=== PATIENT | female | born 1995 | race Caucasian/White ===

== ENCOUNTER 2022-03-20 20:54 | Inpatient (IN) ==
[2022-03-20] MEDS ORDERED: OXYTOCIN 30 UNITS/500 ML BAG IV PRN (21:11)
[2022-03-20] MEDS ORDERED: LIDOCAINE 1% LOCAL 20 ML VIAL INFIL PRN (21:11)
[2022-03-20] MEDS ORDERED: miSOPROStoL 200 MCG TAB PV ONE (21:14)
[2022-03-20 21:55] LABS: Hematocrit (blood only) 39.2 % (34.1-44.9); Hemoglobin 13.5 g/dl (12.0-16.0); Mean Corpuscular Hemoglobin 29.3 pg (25.0-34.0); Mean Corpuscular Hgb Conc 34.4 g/dL (32.0-36.0); Mean Corpuscular Volume 85.2 fL (80.0-100.0); Mean Platelet Volume 9.5 fL (9.4-12.3); Platelet Count 345 K/uL (130-400); RDW Standard Deviation 43.7 fL (36.4-46.3); White Blood Count 10.79 K/ul (4.8-10.8)
[2022-03-20] MEDS ORDERED: LORazepam 0.5 MG TAB PO PRN (22:05)
--- NOTE | 2022-03-20 22:05 | History & Physical Report ---
Date of Service March 20, 2022 Assessment & Plan (1) demise before 20 weeks with retention of fetus: Plan: 26-year-old -0-1-3 at 15 weeks and 4 days of gestation with IUFD diagnosed 2 days ago in office, Vital signs stable afebrile, Patient desires repeat ultrasound to confirm before we start induction, Plan to have repeat ultrasound, blood work, Cytotec per vagina 200 mcg every 4 hours, History of prior 2 C-sections, understand the risks of uterine rupture/dehiscence were History of anxiety, not on any meds, offered her psychiatric consult but she wants to hold for now, All questions were answered. (2) Anxiety during : (3) Intracranial hypertension: (4) History of delivery, currently : Admission and Anticipated Discharge Date Admission Date: March 20, 2022 History of Present Illness Primary Care Provider: NO PCP Patient is a 26-year-old -0-1-3 at 15 weeks and 4 days of gestation who was diagnosed with intrauterine demise 2 days ago in the office during routine OB exam. Was measuring 14 weeks and 6 days with normal heart rate activity. She was scheduled for today for induction of labor. Patient has no complaints, no contractions, cramping, vaginal bleeding nor leakage of fluid. She has questions and worries about going into anxiety and depression episodes during the process as well as after delivering the fetus. She desires to have a repeat ultrasound to confirm demise once more here. has been complicated by, 1. IUFD, 2. History of intracranial hypertension, on medical therapy, 3. History of depression/anxiety, tried 2 different antidepressants which made her symptoms worse and quit. I recommended psychiatric consultation while here but she is not sure yet she will let us know if she will decide to see one. 4. Tobacco use during , 5-7 a day and has been trying to quit, 5. History of 2 prior C-sections, 1 We discussed about etiology of IUFD and work-up including blood work, autopsy, cytogenic testing. She wants to do all the work-up possible. She wants to hold the fetus, obtain footprints, send fetus for autopsy and cytogenetic testing. Allergies Allergy/AdvReac Type Severity Reaction Status Date / Time No Known Allergies Allergy Verified 03/14/22 16:43 Home Medications Medication Instructions Recorded Confirmed Type amoxicillin 500 mg capsule 500 mg PO TID 10 days #30 caps 03/14/22 Rx Patient History Social History Smoking Status: Current every day smoker Tobacco Type: Cigarettes Feels Safe at Home: Yes [employer] History No history of STDs, including chlamydia, gonorrhea, genital herpes Review of Systems as per Subjective / HPI Physical Exam Constitutional: WD/WN, vitals as above well developed, well nourished, well groomed and comfortable Results & Data ([facility]) Vital Signs (Past 12 Hours) Vital Signs Pulse BP 03/20/22 21:13 93 H 135/81
[2022-03-20 22:23] LABS: Alanine Aminotransferase 19 U/L (7-52); Albumin Globulin Ratio 1.3 (0.9-2); Albumin Level 3.7 gm/dl (3.4-5.0); Alkaline Phosphatase 55 U/L (34-104); Anion Gap 7 (3-11); Aspartate Aminotransferase 16 U/L (13-39); BUN Creatinine Ratio 10.9 (10-20); Bilirubin,Total 0.3 mg/dl (0.2-1.0); Blood Urea Nitrogen 5 mg/dl (6-23); Calcium 9.1 mg/dl (8.5-10.1); Carbon Dioxide 26 mmol/L (21-32); Chloride 104 mmol/L (98-107); Est GFR (African American) > 150.0 ml/min; Est GFR (Non-African American) 136.3 ml/min; Globulin 2.8 gm/dl (2.5-4.0); Glucose 86 mg/dl (70-99(Fasting)); Potassium 3.2 mmol/L (3.5-5.1); Sodium 137 mmol/L (136-145); Total Protein 6.5 gm/dl (6.0-8.3)
[2022-03-20 22:32] LABS: Amphetamines+Metham, Urine Neg (Neg); Barbiturates, Urine Neg (Neg); Benzodiazepine, Urine Neg (Neg); Cocaine, Urine Neg (Neg); MDMA (Ecstacy), Urine Neg (Neg); Methadone, Urine Neg (Neg); Opiate, Urine Neg (Neg); Phencyclidine, Urine Neg (Neg)
[2022-03-20] MEDS: valACYclovir HCL 500 MG TABLET PO SCH (22:37)
[2022-03-20] MEDS ORDERED: miSOPROStoL 200 MCG TAB ONE (23:44)
--- NOTE | 2022-03-21 00:25 | Obstetrical Progress Note ---
Date of Service March 21, 2022 Assessment & Plan Admission and Anticipated Discharge Date Admission Date: March 20, 2022 Subjective Patient is back from US, no FHR, no movement, confirmed demise She ate dinner and ready for Cytotec. VE; Cervix closed, thick and firm Cytotec is placed in posterior cervix Lab Results 03/20/22 03/20/22 03/20/22 Range/Units 21:40 21:41 21:41 WBC 10.79 (4.8-10.8) K/ul RBC 4.60 (3.93-5.22) M/uL Hgb 13.5 (12.0-16.0) g/dl Hct 39.2 (34.1-44.9) % MCV 85.2 (80.0-100.0) fL MCH 29.3 (25.0-34.0) pg MCHC 34.4 (32.0-36.0) g/dL RDW Std Deviation 43.7 (36.4-46.3) fL RDW Coeff of Vicente 14.0 (11.5-14.5) % Plt Count 345 (130-400) K/uL MPV 9.5 (9.4-12.3) fL Sodium (136-145) mmol/L Potassium (3.5-5.1) mmol/L Chloride (98-107) mmol/L Carbon Dioxide (21-32) mmol/L Anion Gap (3-11) BUN (6-23) mg/dl Creatinine (0.6-1.2) mg/dl Est Cr Clr Drug Dosing Est GFR ( Amer) ml/min Est GFR (Non-Af Amer) ml/min BUN/Creatinine Ratio (10-20) Glucose (70-99(Fasting)) mg/dl Calcium (8.5-10.1) mg/dl Total Bilirubin (0.2-1.0) mg/dl AST (13-39) U/L ALT (7-52) U/L Alkaline Phosphatase (34-104) U/L Total Protein (6.0-8.3) gm/dl Albumin (3.4-5.0) gm/dl Globulin (2.5-4.0) gm/dl Albumin/Globulin Ratio (0.9-2) TSH 0.497 (0.300-4.500) uIu/ml Urine Opiates Screen (Neg) Ur Methadone, Qual (Neg) Urine Barbiturates (Neg) Ur Phencyclidine (PCP) (Neg) U Amphetamin/Meth Scrn (Neg) MDMA (Ecstasy) Screen (Neg) U Benzodiazepines Scrn (Neg) Ur Cocaine Metabolite (Neg) U Marijuana (THC) Screen (Neg) SARS-CoV-2, RNA, NAAT (NEGATIVE) Blood Type O Positive Antibody Screen NEGATIVE 03/20/22 03/20/22 03/20/22 Range/Units 21:41 22:04 22:04 WBC (4.8-10.8) K/ul RBC (3.93-5.22) M/uL Hgb (12.0-16.0) g/dl Hct (34.1-44.9) % MCV (80.0-100.0) fL MCH (25.0-34.0) pg MCHC (32.0-36.0) g/dL RDW Std Deviation (36.4-46.3) fL RDW Coeff of Vicente (11.5-14.5) % Plt Count (130-400) K/uL MPV (9.4-12.3) fL Sodium 137 (136-145) mmol/L Potassium 3.2 L (3.5-5.1) mmol/L Chloride 104 (98-107) mmol/L Carbon Dioxide 26 (21-32) mmol/L Anion Gap 7 (3-11) BUN 5 L (6-23) mg/dl Creatinine 0.46 L (0.6-1.2) mg/dl Est Cr Clr Drug Dosing Not Reportable Est GFR ( Amer) > 150.0 ml/min Est GFR (Non-Af Amer) 136.3 ml/min BUN/Creatinine Ratio 10.9 (10-20) Glucose 86 (70-99(Fasting)) mg/dl Calcium 9.1 (8.5-10.1) mg/dl Total Bilirubin 0.3 (0.2-1.0) mg/dl AST 16 (13-39) U/L ALT 19 (7-52) U/L Alkaline Phosphatase 55 (34-104) U/L Total Protein 6.5 (6.0-8.3) gm/dl Albumin 3.7 (3.4-5.0) gm/dl Globulin 2.8 (2.5-4.0) gm/dl Albumin/Globulin Ratio 1.3 (0.9-2) TSH (0.300-4.500) uIu/ml Urine Opiates Screen Neg (Neg) Ur Methadone, Qual Neg (Neg) Urine Barbiturates Neg (Neg) Ur Phencyclidine (PCP) Neg (Neg) U Amphetamin/Meth Scrn Neg (Neg) MDMA (Ecstasy) Screen Neg (Neg) U Benzodiazepines Scrn Neg (Neg) Ur Cocaine Metabolite Neg (Neg) U Marijuana (THC) Screen Neg (Neg) SARS-CoV-2, RNA, NAAT NEGATIVE (NEGATIVE) Blood Type Antibody Screen Low K: 10 meq KCL ordered Atarax prn for anxiety and sleep Continue with Cytotec 4 hours Continue to monitor Results & Data ([facility]) Vital Signs (Past 12 Hours) Vital Signs Temp Pulse Resp BP 03/20/22 21:13 37.1 C 93 H 18 135/81
[2022-03-21] MEDS ORDERED: BUTORPHANOL TARTRATE 1 MG/ML VIAL IV PRN (00:27)
[2022-03-21] MEDS ORDERED: ACETAMINOPHEN 1,000 MG/100 ML VIAL IV PRN (00:27)
[2022-03-21] MEDS ORDERED: hydrOXYzine HCl 25 MG TAB PO PRN (00:40)
[2022-03-21] MEDS: LACTATED RINGER'S 1,000 ML IV PRN ×3 (00:45→15:57)
[2022-03-21] MEDS ORDERED: NICOTINE 7 MG/24 HR TDSY TD SCH ×2 (01:15→21:00)
[2022-03-21] MEDS: POTASSIUM CHLORIDE / WTR 10 MEQ/100 ML PLCT IV SCH ×2 (01:29→02:54)
[2022-03-21] MEDS ORDERED: miSOPROStoL 200 MCG TAB SL SCH ×2 (04:40→09:00)
[2022-03-21 06:55] LABS: Anion Gap 6 (3-11); BUN Creatinine Ratio 12.5 (10-20); Blood Urea Nitrogen 6 mg/dl (6-23); Calcium 8.9 mg/dl (8.5-10.1); Carbon Dioxide 27 mmol/L (21-32); Chloride 105 mmol/L (98-107); Creatinine Clr Calc Pharmacy 158.6 ml/min; Est GFR (African American) > 150.0 ml/min; Est GFR (Non-African American) 134.4 ml/min; Glucose 94 mg/dl (70-99(Fasting)); Potassium 3.6 mmol/L (3.5-5.1); Sodium 138 mmol/L (136-145)
[2022-03-21] MEDS ORDERED: MECLIZINE HCL 25 MG TAB PO PRN (06:55)
[2022-03-21 07:25] LABS: Estimated Average Glucose 111 mg/dl; Hemoglobin A1C 5.5 % (4.5-5.6)
[2022-03-21] MEDS ORDERED: Nursing to Pharmacy Communication SCH ×3 (07:30→10:45)
[2022-03-21] MEDS: FUROSEMIDE 20 MG TAB PO SCH ×2 (08:51→21:11)
[2022-03-21] MEDS: lamoTRIgine 25 MG TAB PO SCH (08:52)
[2022-03-21] MEDS: PROPRANOLOL HCL 20 MG TAB PO SCH ×2 (08:52→21:07)
[2022-03-21] MEDS: valACYclovir HCL 500 MG TABLET PO SCH ×2 (08:53→21:12)
[2022-03-21] MEDS: traMADol HCL 50 MG TABLET PO SCH ×2 (08:54→21:20)
[2022-03-21] MEDS: GABAPENTIN 600 MG TAB PO SCH ×2 (08:55→21:06)
[2022-03-21] MEDS: PRENATAL VITAMIN 1 TAB PO SCH (08:55)
[2022-03-21] MEDS ORDERED: miSOPROStoL 200 MCG TAB PV SCH ×2 (09:00→12:00)
--- NOTE | 2022-03-21 09:24 | Labor Progress Brief Note ---
Date of Service March 21, 2022 Assessment & Plan Admission and Anticipated Discharge Date Admission Date: March 20, 2022 Physical Exam Genitourinary: Manual OB Exam: + cervical dilation fingertip, + cervical effacement 10% and + station high Cytotec 600 mcg placed vaginally Results & Data ([facility]) Vital Signs (Past 12 Hours) Vital Signs Temp Pulse Resp BP 03/21/22 00:18 37.3 C 18 03/21/22 08:46 37.1 C 93 H 20 123/76 03/21/22 06:19 74 105/56 L 03/21/22 03:59 76 113/57 L 03/21/22 01:25 81 98/57 L 03/21/22 00:40 98 H 119/69
--- NOTE | 2022-03-21 09:46 | Ultrasound Report ---
US OB limited CLINICAL HISTORY: confirm demise COMPARISON STUDY: None. FINDINGS: Real-time sonographic imaging of the pelvis was performed with cordage sales representative images submit get. There is a single intrauterine fetus with no cardiac activity identified. This confirms the werner ent's known history of demise. The gestational sac is compressed. There is a small amount of am niotic fluid noted. There is an anterior placenta. IMPRESSION: A single intrauterine fetus with no cardiac activity identified. This confirms the patie nt's known history of demise. ACT 112: Negative or not required by law. Electronically signed by: Andrei Esquivel M.D. 03/21/2022 9:44 AM
[2022-03-21] MEDS: miSOPROStoL 200 MCG TAB PV SCH ×2 (15:22→21:37)
[2022-03-21] MEDS ORDERED: fentaNYL citrate 100 MCG/2 ML VIAL ONE (15:33)
[2022-03-21] MEDS ORDERED: BUPIVACAINE 0.25% 30 ML VIAL ONE (15:33)
[2022-03-21] MEDS ORDERED: ePHEDrine sulfate 50 MG/ML AMP ONE (15:33)
[2022-03-21] MEDS ORDERED: SODIUM CHLORIDE 0.9% INJ 10 ML VIAL ONE (15:33)
[2022-03-21] MEDS ORDERED: LIDOCAINE 2%/EPINEPHRINE 1:200,000 20 ML SDV ONE (15:34)
[2022-03-21] MEDS ORDERED: fentaNYL 2MCG/ML ROPIVACAINE 1.25MG/ML 100 ML BAG EPI ONE (15:34)
[2022-03-21] MEDS ORDERED: diphenhydrAMINE 50 MG/ML VIAL IV PRN (15:42)
[2022-03-21] MEDS ORDERED: fentaNYL 2MCG/ML ROPIVACAINE 1.25MG/ML 100 ML BAG EPI PRN (15:42)
[2022-03-21] MEDS ORDERED: NALOXONE HCL 1 MG in SODIUM CHLORIDE 0.9% 1000ML 1,000 ML IV PRN (15:42)
[2022-03-21] MEDS ORDERED: NALOXONE HCL 0.4 MG/1 ML VIAL/CARP IV PRN (15:42)
[2022-03-21] MEDS ORDERED: NALBUPHINE HCL INJ 10 MG/ML AMP IV PRN (15:42)
[2022-03-21] MEDS ORDERED: ePHEDrine sulfate 50 MG/ML AMP IV PRN (15:42)
--- NOTE | 2022-03-21 15:42 | Anesthesiology Consultation ---
Date of Service March 21, 2022 Assessment & Plan (1) Encounter for pre-operative examination: Chart Review Chart Review: Patient NOT seen in Pre Admission Testing and Acceptable Risk for Labor Epidural Consults Requested none History Height/Weight Height: 5 ft Weight: 74.389 kg Allergies Allergy/AdvReac Type Severity Reaction Status Date / Time No Known Allergies Allergy Verified 03/14/22 16:43 Medications Home Medications Medication Instructions Recorded Confirmed Last Taken 1 gummy PO DAILY 03/21/22 03/21/22 Unknown furosemide 20 mg tablet (Lasix) 20 mg PO BID 03/21/22 03/21/22 Unknown gabapentin 600 mg tablet 600 mg PO BID 03/21/22 03/21/22 Unknown (Neurontin) lamotrigine 25 mg tablet (Lamictal) 25 mg PO AMPM 03/21/22 03/21/22 Unknown meclizine 25 mg tablet 25 mg PO BID PRN Dizziness 03/21/22 03/21/22 Unknown propranolol 40 mg tablet 40 mg PO BID 03/21/22 03/21/22 Unknown tramadol 50 mg PO BID 03/21/22 03/21/22 Unknown Active Medications Generic Name Dose Route Start Last Admin Trade Name Freq PRN Reason Stop Dose Admin Butorphanol Tartrate 1 mg 03/21/22 00:27 03/21/22 03:05 Butorphanol Tartrate 1 Mg/Ml Vial IV 04/20/22 00:26 1 mg Q2H PRN Administration Pain Furosemide 20 mg 03/21/22 09:00 03/21/22 08:51 Furosemide 20 Mg Tab PO 04/20/22 08:59 20 mg BID HALLIE Administration Gabapentin 600 mg 03/21/22 09:00 03/21/22 08:55 Gabapentin 600 Mg Tab PO 04/20/22 08:59 600 mg BID HALLIE Administration Hydroxyzine HCl 25 mg 03/21/22 00:40 03/21/22 01:30 Hydroxyzine Hcl 25 Mg Tab PO 04/20/22 00:39 25 mg Q8 PRN Administration sleep Lactated Ringer's 1,000 mls @ 125 mls/hr 03/20/22 21:11 03/21/22 15:30 Lr IV 03/22/22 21:10 999 mls/hr .Q8H PRN Infusion L&D Protocol Protocol Acetaminophen 1,000 mg in 100 mls @ 400 mls/hr 03/21/22 00:27 03/21/22 06:15 Ofirmev IV 03/24/22 00:26 400 mls/hr Q8H PRN Administration pain Lamotrigine 25 mg 03/21/22 09:00 03/21/22 08:52 Lamotrigine 25 Mg Tab PO 04/20/22 08:59 25 mg QAM HALLIE Administration Misoprostol 600 mcg 03/21/22 15:00 03/21/22 15:22 Misoprostol 200 Mcg Tab PV 04/20/22 08:59 600 mcg Q6H HALLIE Administration Prenat Multivit/Magdalena/Iron/Folic Ac 1 tab 03/21/22 09:00 03/21/22 08:55 Vitamin 1 Tab PO 04/20/22 08:59 1 tab DAILY HALLIE Administration Propranolol HCl 40 mg 03/21/22 09:00 03/21/22 08:52 Propranolol Hcl 20 Mg Tab PO 04/20/22 08:59 40 mg BID HALLIE Administration Tramadol HCl 50 mg 03/21/22 09:00 03/21/22 08:54 Tramadol Hcl 50 Mg Tablet PO 04/20/22 08:59 50 mg BID HALLIE Administration Valacyclovir HCl 1,000 mg 03/20/22 22:15 03/21/22 08:53 Valacyclovir Hcl 500 Mg Tablet PO 03/27/22 22:14 1,000 mg BID HALLIE Administration Past Medical History Medical History (Updated 03/21/22 @ 15:42 by Solis Hart MD) Anxiety during Intracranial hypertension Exercise / Class Metabolic Activity II 4-5 Yardwork/Stairs/Walk up hill Past Anesthesia History No Hx of Anesthesia Complications and No Family Hx of Anesthesia Complications History of PONV No Hx of PONV and No Hx of Motion Sickness Social History Smoking Status: Current every day smoker tobacco type: cigarettes Do You Dip or Chew Tobacco: No Hx Alcohol Use: No Hx Substance Use: No substance use type: does not use Physical Exam Vital Signs Last Vital Signs Temp 37.5 C 03/21/22 15:14 Pulse 82 03/21/22 15:14 Resp 20 03/21/22 15:14 BP 116/75 03/21/22 15:14 Testing Laboratory Results 03/20/22 21:41 03/21/22 06:06 Hemoglobin A1c 5.5 % (4.5-5.6) 03/20/22 21:41 Blood Type O Positive 03/20/22 21:41 Antibody Screen NEGATIVE 03/20/22 21:41 03/20/22 22:04 Urine Culture - Preliminary Urine,Clean Catch Pin-point growth present, reincubating.
[2022-03-21] MEDS ORDERED: HYDROCORTISONE ACETATE 25 MG SUPP PR PRN (17:33)
[2022-03-21] MEDS ORDERED: bisacodyL 10 MG SUPP PR PRN (17:33)
[2022-03-21] MEDS ORDERED: DIPHTHERIA/TETANUS/PERTUSSIS 0.5 ML SYR/VIAL IM ONE (17:33)
[2022-03-21] MEDS ORDERED: OXYTOCIN 30 UNITS/500 ML BAG IV PRN (17:33)
[2022-03-21] MEDS ORDERED: BENZOCAINE 20% AER SPR 82.5 GM CAN EXT PRN (17:33)
[2022-03-21] MEDS ORDERED: ACETAMINOPHEN 325 MG TAB PO PRN (17:33)
--- NOTE | 2022-03-21 17:41 | Delivery Summary ---
Vaginal Delivery Summary Date of Service March 21, 2022 Vaginal Delivery Summary Delivery Note Spontaneous vaginal delivery of stillborn male with Apgars 0/0 at 15.6 weeks. Tight nuchal cord wrapped several times around baby noted. No other visible anomalies are detected. Placenta delivered spontaneously several minutes later on its own. Placenta submitted to pathology for exam. No tears. Mom s stable and would like to stay till tomorrow for discharge. EBL 100 ml. Final sponge and instrument counts are correct.
--- NOTE | 2022-03-21 17:54 | Anesthesia Procedure Note ---
Date of Service March 21, 2022 Anesthesia Post Epidural Note Vital Signs Vital Signs: Temp Pulse Resp BP Pulse Ox 37.5 C 79 18 122/57 L 85 L 03/21/22 15:14 03/21/22 17:51 03/21/22 16:23 03/21/22 17:51 03/21/22 17:20 Notes Mental Status: alert / awake / arousable and participated in evaluation Nausea / Vomiting: adequately controlled Pain: adequately controlled Airway Patency, RR, SpO2: stable & adequate BP & HR: stable & adequate Hydration State: stable & adequate Neuraxial Anesthesia: was administered and sensory block is resolving Anesthetic Complications: no major complications apparent and Pt Satisfied with anesthetic care Epidural: Removed without complications and With tip intact
[2022-03-21] MEDS: IBUPROFEN 600 MG TAB PO PRN (19:39)
[2022-03-21] MEDS ORDERED: lamoTRIgine 25 MG TAB PO SCH (21:00)
[2022-03-21] MEDS: DOCUSATE SODIUM 100 MG CAP PO SCH (21:20)
[2022-03-22] MEDS: IBUPROFEN 600 MG TAB PO PRN (03:13)
[2022-03-22 06:33] LABS: Hemoglobin 11.6 g/dl (12.0-16.0); Mean Corpuscular Hemoglobin 28.7 pg (25.0-34.0); Mean Corpuscular Hgb Conc 33.1 g/dL (32.0-36.0); Mean Corpuscular Volume 86.6 fL (80.0-100.0); Mean Platelet Volume 9.4 fL (9.4-12.3); Platelet Count 271 K/uL (130-400); RDW Standard Deviation 44.5 fL (36.4-46.3); Red Blood Count 4.04 M/uL (3.93-5.22); White Blood Count 8.61 K/ul (4.8-10.8)
[2022-03-22] MEDS: miSOPROStoL 200 MCG TAB PV SCH (06:41)
[2022-03-22] MEDS: DOCUSATE SODIUM 100 MG CAP PO SCH (07:59)
[2022-03-22] MEDS: lamoTRIgine 25 MG TAB PO SCH (08:00)
[2022-03-22] MEDS: traMADol HCL 50 MG TABLET PO SCH (08:00)
[2022-03-22] MEDS ORDERED: PRENATAL VITAMIN 1 TAB PO SCH (08:00)
[2022-03-22] MEDS: GABAPENTIN 600 MG TAB PO SCH (08:00)
[2022-03-22] MEDS: PROPRANOLOL HCL 20 MG TAB PO SCH (08:00)
[2022-03-22] MEDS: FUROSEMIDE 20 MG TAB PO SCH (08:00)
[2022-03-22] MEDS: PRENATAL VITAMIN 1 TAB PO SCH (08:00)
[2022-03-22] MEDS ORDERED: FERROUS SULFATE 325 MG TAB PO SCH (08:00)
[2022-03-22] MEDS: valACYclovir HCL 500 MG TABLET PO SCH (08:01)
--- NOTE | 2022-03-22 08:36 | Obstetrical Progress Note ---
Date of Service March 22, 2022 Assessment & Plan Admission and Anticipated Discharge Date Admission Date: March 20, 2022 Subjective Patient is seen and examined. She feels well, no complaints. Ambulating without dizziness Voiding without difficulty Tolerating regular diet with out N&V Bleeding is minimal No fever/ chills/ CP/ SOB/ N&V/ Leg pain Her mood is okay, declines psych consult. Vital Signs Temp Pulse Resp BP 03/22/22 07:04 36.7 C 20 03/22/22 03:14 36.8 C 16 03/21/22 22:48 37.1 C 16 03/22/22 07:04 66 120/76 03/22/22 03:13 72 91/52 L 03/21/22 22:48 87 03/21/22 22:48 100/51 L Lab Results 03/20/22 03/20/22 03/20/22 Range/Units 21:40 21:40 21:41 WBC (4.8-10.8) K/ul RBC (3.93-5.22) M/uL Hgb (12.0-16.0) g/dl Hct (34.1-44.9) % MCV (80.0-100.0) fL MCH (25.0-34.0) pg MCHC (32.0-36.0) g/dL RDW Std Deviation (36.4-46.3) fL RDW Coeff of Vicente (11.5-14.5) % Plt Count (130-400) K/uL MPV (9.4-12.3) fL Sodium (136-145) mmol/L Potassium (3.5-5.1) mmol/L Chloride (98-107) mmol/L Carbon Dioxide (21-32) mmol/L Anion Gap (3-11) BUN (6-23) mg/dl Creatinine (0.6-1.2) mg/dl Est Cr Clr Drug Dosing Est GFR ( Amer) ml/min Est GFR (Non-Af Amer) ml/min BUN/Creatinine Ratio (10-20) Glucose (70-99(Fasting)) mg/dl Estimat Average Glucose mg/dl Hemoglobin A1c (4.5-5.6) % Calcium (8.5-10.1) mg/dl Total Bilirubin (0.2-1.0) mg/dl AST (13-39) U/L ALT (7-52) U/L Alkaline Phosphatase (34-104) U/L Total Protein (6.0-8.3) gm/dl Albumin (3.4-5.0) gm/dl Globulin (2.5-4.0) gm/dl Albumin/Globulin Ratio (0.9-2) TSH 0.497 (0.300-4.500) uIu/ml Urine Opiates Screen (Neg) Ur Methadone, Qual (Neg) Urine Barbiturates (Neg) Ur Phencyclidine (PCP) (Neg) U Amphetamin/Meth Scrn (Neg) MDMA (Ecstasy) Screen (Neg) U Benzodiazepines Scrn (Neg) Ur Cocaine Metabolite (Neg) U Marijuana (THC) Screen (Neg) RPR Nonreactive (Nonreactive) SARS-CoV-2, RNA, NAAT (NEGATIVE) Blood Type O Positive Antibody Screen NEGATIVE Mother's Rh Status RH Pos Maternal Bleed 0 ML KB Cells Counted 0 /Adult RBC Ratio 0.00 03/20/22 03/20/22 03/20/22 Range/Units 21:41 21:41 21:41 WBC 10.79 (4.8-10.8) K/ul RBC 4.60 (3.93-5.22) M/uL Hgb 13.5 (12.0-16.0) g/dl Hct 39.2 (34.1-44.9) % MCV 85.2 (80.0-100.0) fL MCH 29.3 (25.0-34.0) pg MCHC 34.4 (32.0-36.0) g/dL RDW Std Deviation 43.7 (36.4-46.3) fL RDW Coeff of Vicente 14.0 (11.5-14.5) % Plt Count 345 (130-400) K/uL MPV 9.5 (9.4-12.3) fL Sodium 137 (136-145) mmol/L Potassium 3.2 L (3.5-5.1) mmol/L Chloride 104 (98-107) mmol/L Carbon Dioxide 26 (21-32) mmol/L Anion Gap 7 (3-11) BUN 5 L (6-23) mg/dl Creatinine 0.46 L (0.6-1.2) mg/dl Est Cr Clr Drug Dosing Not Reportable Est GFR ( Amer) > 150.0 ml/min Est GFR (Non-Af Amer) 136.3 ml/min BUN/Creatinine Ratio 10.9 (10-20) Glucose 86 (70-99(Fasting)) mg/dl Estimat Average Glucose 111 mg/dl Hemoglobin A1c 5.5 (4.5-5.6) % Calcium 9.1 (8.5-10.1) mg/dl Total Bilirubin 0.3 (0.2-1.0) mg/dl AST 16 (13-39) U/L ALT 19 (7-52) U/L Alkaline Phosphatase 55 (34-104) U/L Total Protein 6.5 (6.0-8.3) gm/dl Albumin 3.7 (3.4-5.0) gm/dl Globulin 2.8 (2.5-4.0) gm/dl Albumin/Globulin Ratio 1.3 (0.9-2) TSH (0.300-4.500) uIu/ml Urine Opiates Screen (Neg) Ur Methadone, Qual (Neg) Urine Barbiturates (Neg) Ur Phencyclidine (PCP) (Neg) U Amphetamin/Meth Scrn (Neg) MDMA (Ecstasy) Screen (Neg) U Benzodiazepines Scrn (Neg) Ur Cocaine Metabolite (Neg) U Marijuana (THC) Screen (Neg) RPR (Nonreactive) SARS-CoV-2, RNA, NAAT (NEGATIVE) Blood Type Antibody Screen Mother's Rh Status Maternal Bleed ML KB Cells Counted /Adult RBC Ratio 03/20/22 03/20/22 03/21/22 Range/Units 22:04 22:04 06:06 WBC (4.8-10.8) K/ul RBC (3.93-5.22) M/uL Hgb (12.0-16.0) g/dl Hct (34.1-44.9) % MCV (80.0-100.0) fL MCH (25.0-34.0) pg MCHC (32.0-36.0) g/dL RDW Std Deviation (36.4-46.3) fL RDW Coeff of Vicente (11.5-14.5) % Plt Count (130-400) K/uL MPV (9.4-12.3) fL Sodium 138 (136-145) mmol/L Potassium 3.6 (3.5-5.1) mmol/L Chloride 105 (98-107) mmol/L Carbon Dioxide 27 (21-32) mmol/L Anion Gap 6 (3-11) BUN 6 (6-23) mg/dl Creatinine 0.48 L (0.6-1.2) mg/dl Est Cr Clr Drug Dosing 158.6 Est GFR ( Amer) > 150.0 ml/min Est GFR (Non-Af Amer) 134.4 ml/min BUN/Creatinine Ratio 12.5 (10-20) Glucose 94 (70-99(Fasting)) mg/dl Estimat Average Glucose mg/dl Hemoglobin A1c (4.5-5.6) % Calcium 8.9 (8.5-10.1) mg/dl Total Bilirubin (0.2-1.0) mg/dl AST (13-39) U/L ALT (7-52) U/L Alkaline Phosphatase (34-104) U/L Total Protein (6.0-8.3) gm/dl Albumin (3.4-5.0) gm/dl Globulin (2.5-4.0) gm/dl Albumin/Globulin Ratio (0.9-2) TSH (0.300-4.500) uIu/ml Urine Opiates Screen Neg (Neg) Ur Methadone, Qual Neg (Neg) Urine Barbiturates Neg (Neg) Ur Phencyclidine (PCP) Neg (Neg) U Amphetamin/Meth Scrn Neg (Neg) MDMA (Ecstasy) Screen Neg (Neg) U Benzodiazepines Scrn Neg (Neg) Ur Cocaine Metabolite Neg (Neg) U Marijuana (THC) Screen Neg (Neg) RPR (Nonreactive) SARS-CoV-2, RNA, NAAT NEGATIVE (NEGATIVE) Blood Type Antibody Screen Mother's Rh Status Maternal Bleed ML KB Cells Counted /Adult RBC Ratio 03/22/22 Range/Units 06:07 WBC 8.61 (4.8-10.8) K/ul RBC 4.04 (3.93-5.22) M/uL Hgb 11.6 L (12.0-16.0) g/dl Hct 35.0 (34.1-44.9) % MCV 86.6 (80.0-100.0) fL MCH 28.7 (25.0-34.0) pg MCHC 33.1 (32.0-36.0) g/dL RDW Std Deviation 44.5 (36.4-46.3) fL RDW Coeff of Vicente 14.0 (11.5-14.5) % Plt Count 271 (130-400) K/uL MPV 9.4 (9.4-12.3) fL Sodium (136-145) mmol/L Potassium (3.5-5.1) mmol/L Chloride (98-107) mmol/L Carbon Dioxide (21-32) mmol/L Anion Gap (3-11) BUN (6-23) mg/dl Creatinine (0.6-1.2) mg/dl Est Cr Clr Drug Dosing Est GFR ( Amer) ml/min Est GFR (Non-Af Amer) ml/min BUN/Creatinine Ratio (10-20) Glucose (70-99(Fasting)) mg/dl Estimat Average Glucose mg/dl Hemoglobin A1c (4.5-5.6) % Calcium (8.5-10.1) mg/dl Total Bilirubin (0.2-1.0) mg/dl AST (13-39) U/L ALT (7-52) U/L Alkaline Phosphatase (34-104) U/L Total Protein (6.0-8.3) gm/dl Albumin (3.4-5.0) gm/dl Globulin (2.5-4.0) gm/dl Albumin/Globulin Ratio (0.9-2) TSH (0.300-4.500) uIu/ml Urine Opiates Screen (Neg) Ur Methadone, Qual (Neg) Urine Barbiturates (Neg) Ur Phencyclidine (PCP) (Neg) U Amphetamin/Meth Scrn (Neg) MDMA (Ecstasy) Screen (Neg) U Benzodiazepines Scrn (Neg) Ur Cocaine Metabolite (Neg) U Marijuana (THC) Screen (Neg) RPR (Nonreactive) SARS-CoV-2, RNA, NAAT (NEGATIVE) Blood Type Antibody Screen Mother's Rh Status Maternal Bleed ML KB Cells Counted /Adult RBC Ratio PE: General: Alert, orientedx3, NAD Abd: soft, NT, Perineum intact, Lochia rubra minimal Ext; NT, no edema AP: 26 yo s/p IOL for IUFD, , ppd# 1 VSS Afebrile doing well Continue routine care All questions were answered D/C home , f/u in office Results & Data ([facility]) Vital Signs (Past 12 Hours) Vital Signs Temp Pulse Resp BP 03/22/22 07:04 36.7 C 20 03/22/22 03:14 36.8 C 16 03/21/22 22:48 37.1 C 16 03/22/22 07:04 66 120/76 03/22/22 03:13 72 91/52 L 03/21/22 22:48 87 03/21/22 22:48 100/51 L
[2022-03-22] MEDS ORDERED: bisacodyL 5 MG TABEC PO SCH (20:00)
[2022-03-27 01:06] LABS: HBSAG NON-REACTIVE (NON-REACTIVE)
--- NOTE | 2022-03-30 01:52 | Discharge Summary (DS) ---
DATE OF ADMISSION: 03/20/2022. DATE OF DISCHARGE: 03/22/2022. DETAILS OF ADMISSION: The patient is a 26-year-old G5, P3-0-1-3 at 15 weeks and 4 days of gestation, who was diagnosed with intrauterine demise two days ago in the office. She was scheduled for induction of labor for demise. She has a history of prior 2 C-sections and anxiety, not on any medications, intracranial hypertension. She was admitted on 03/20/2022 evening by myself. Her cervix was found to be closed and thick and she had a repeat ultrasound to confirm the demise, and then she received 200 mcg of Cytotec per vagina and then continued as intrabuccal p.o. for every 4 hours until morning then Dr. Dennis took her care. Her cervix was fingertip and thick and he placed another Cytotec intravaginally, and in the evening on 03/21/2022, the patient delivered spontaneously a stillborn male infant, Apgars 0/0. There was a tight nuchal cord wrapped several times around the neck. No other visible abnormalities detected. Placenta was delivered spontaneously and mom was stable. The patient was observed overnight and in the morning when I came, she was doing well, vital signs stable, afebrile. She was voiding without difficulty, ambulating without dizziness. Bleeding was minimal. She was eating regular diet. No fevers or chills. Her mood was okay and she declined psychiatric consultation. Her H and H in the morning was 11.6/35. Her other blood work including thyroid function, hemoglobin A1c, CMP were normal. She had other testing, which were pending. She was discharged on 03/22/2022. Discharge instructions were given. Prescriptions were written for pain and iron. She is to be seen in the office in 2 weeks. All questions were answered. Job ID: [id number] [facility]
== END 2022-03-22 09:00 | disposition home or self-care (01) | DRG 770 ==
LOC: 4S1 20:54